=== PATIENT | female | born 1965 | race Caucasian/White ===

== ENCOUNTER 2016-04-28 11:44 | Inpatient (IN) | payer BC ==
[~2016-04-28] VITALS: Ht 157.5 cm; Wt 242.7 kg
[2016-04-28] MEDS ORDERED: ONDANSETRON 4 MG VIAL ONE (12:52)
[2016-04-28] MEDS ORDERED: DUONEB INH ONE (13:01)
[2016-04-28] MEDS ORDERED: METHYLPRED SOD SUCC 125 MG/2 ML VIAL ONE (13:04)
[2016-04-28] MEDS ORDERED: CEFTRIAXONE 1 GM VIAL ONE (13:37)
[2016-04-28] MEDS ORDERED: SODIUM CHLORIDE 0.9% 100 ML IV ONE (13:37)
[2016-04-28] MEDS ORDERED: AZITHROMYCIN 500 MG VIAL IV ONE (13:37)
[2016-04-28 13:43] VITALS: RESP 20
[2016-04-28] MEDS ORDERED: ENOXAPARIN 60 MG/0.6 ML SYR SUBQ ONE (15:04)
[2016-04-28] MEDS ORDERED: ENOXAPARIN 100 MG/ML SYR SUBQ ONE (15:05)
[2016-04-28 16:50] VITALS: RESP 27
[2016-04-28] MEDS: NEB-BROVANA 15 MCG/2 ML INH SCH (18:11)
[2016-04-28] MEDS: NEB-XOPENEX 0.63 MG/3 ML INH SCH (18:11)
[2016-04-28] MEDS: NEB-BUDESONIDE 0.5 MG INH SCH (18:11)
[2016-04-28] MEDS: THEOPHYLLINE SR 300 MG CAP PO SCH (18:22)
[2016-04-28] MEDS: LEVOFLOXACIN 500 MG/100 ML 100 ML IV SCH (18:23)
[2016-04-28] MEDS: Furosemide 20 MG/2 ML VIAL IV SCH (18:31)
[2016-04-28] MEDS: METHYLPRED SOD SUCC 40 MG VIAL IV SCH (18:31)
[2016-04-28 18:39] VITALS: BP_SYST 124; RESP 22; TEMP 99.2; Ht 157.5 cm; Wt 242.7 kg
[2016-04-28] MEDS ORDERED: GLUCAGON 1 MG VIAL IM PRN (19:35)
[2016-04-28] MEDS ORDERED: DEXTROSE 50% SYRINGE 50 ML IV PRN (19:35)
[2016-04-28] MEDS: CYCLOBENZAPRINE 10 MG TAB PO SCH (20:48)
[2016-04-28] MEDS: METFORMIN 500 MG TAB PO SCH (20:48)
[2016-04-28] MEDS: GABAPENTIN 400 MG CAP PO SCH (20:48)
[2016-04-28] MEDS: LISINOPRIL 20 MG TAB PO SCH (20:48)
[2016-04-28] MEDS: ENOXAPARIN 30 MG/0.3 ML SYR SUBQ SCH (21:00)
[2016-04-28] MEDS ORDERED: GABAPENTIN 600 MG TAB PO SCH (21:00)
[2016-04-28 23:00] VITALS: BP_SYST 99; RESP 18
[2016-04-29] VITALS (8 sets, daily range): BP systolic 99–128; RESP 18–32; TEMP 97.5–98.3
[2016-04-29] MEDS: METHYLPRED SOD SUCC 40 MG VIAL IV SCH ×3 (00:26→16:14)
[2016-04-29] MEDS: NEB-BROVANA 15 MCG/2 ML INH SCH ×2 (07:03→20:21)
[2016-04-29] MEDS: NEB-BUDESONIDE 0.5 MG INH SCH ×2 (07:04→20:21)
[2016-04-29] MEDS: NEB-XOPENEX 0.63 MG/3 ML INH SCH ×3 (07:04→20:21)
[2016-04-29] MEDS: Furosemide 20 MG/2 ML VIAL IV SCH ×3 (08:44→21:49)
[2016-04-29] MEDS: LEVOFLOXACIN 500 MG/100 ML 100 ML IV SCH (08:44)
[2016-04-29] MEDS: GABAPENTIN 600 MG TAB PO SCH ×2 (08:45→16:15)
[2016-04-29] MEDS: ENOXAPARIN 30 MG/0.3 ML SYR SUBQ SCH ×2 (08:45→21:53)
[2016-04-29] MEDS: LISINOPRIL 20 MG TAB PO SCH (08:46)
[2016-04-29] MEDS: THEOPHYLLINE SR 300 MG CAP PO SCH (08:46)
[2016-04-29] MEDS: CYCLOBENZAPRINE 10 MG TAB PO SCH ×2 (08:46→21:49)
[2016-04-29] MEDS: METFORMIN 500 MG TAB PO SCH ×2 (08:46→21:50)
[2016-04-29] MEDS: GABAPENTIN 400 MG CAP PO SCH (21:51)
[2016-04-30] VITALS (8 sets, daily range): BP systolic 122–153; RESP 17–31; TEMP 97.4–99.2
[2016-04-30] MEDS: METHYLPRED SOD SUCC 40 MG VIAL IV SCH ×3 (00:29→18:06)
[2016-04-30] MEDS: NEB-BROVANA 15 MCG/2 ML INH SCH ×2 (07:46→18:46)
[2016-04-30] MEDS: NEB-XOPENEX 0.63 MG/3 ML INH SCH ×3 (07:46→18:46)
[2016-04-30] MEDS: NEB-BUDESONIDE 0.5 MG INH SCH ×2 (07:46→18:46)
[2016-04-30] MEDS: GABAPENTIN 600 MG TAB PO SCH ×2 (10:00→18:05)
[2016-04-30] MEDS: CYCLOBENZAPRINE 10 MG TAB PO SCH ×2 (10:00→19:59)
[2016-04-30] MEDS: THEOPHYLLINE SR 300 MG CAP PO SCH (10:00)
[2016-04-30] MEDS: LISINOPRIL 20 MG TAB PO SCH (10:00)
[2016-04-30] MEDS: Furosemide 20 MG/2 ML VIAL IV SCH ×3 (10:00→20:04)
[2016-04-30] MEDS: METFORMIN 500 MG TAB PO SCH ×2 (10:01→20:03)
[2016-04-30] MEDS: ENOXAPARIN 30 MG/0.3 ML SYR SUBQ SCH ×2 (10:02→20:04)
[2016-04-30] MEDS: LEVOFLOXACIN 500 MG/100 ML 100 ML IV SCH (10:29)
[2016-04-30] MEDS: GABAPENTIN 400 MG CAP PO SCH (20:03)
[2016-04-30] MEDS ORDERED: MISSING DOSE XX ONE (23:10)
[2016-05-01] VITALS (7 sets, daily range): BP systolic 110–139; RESP 18–28; TEMP 97.4–97.6
[2016-05-01] MEDS: METHYLPRED SOD SUCC 40 MG VIAL IV SCH ×3 (00:50→16:54)
[2016-05-01] MEDS ORDERED: SALINE FLUSH 10 ML FLUSH PRN (03:25)
[2016-05-01] MEDS: SODIUM CHLORIDE 0.9% FLUSH BAG 500 ML IV SCH (05:35)
[2016-05-01] MEDS: NEB-XOPENEX 0.63 MG/3 ML INH SCH ×3 (07:12→19:01)
[2016-05-01] MEDS: NEB-BROVANA 15 MCG/2 ML INH SCH ×2 (07:12→19:01)
[2016-05-01] MEDS: NEB-BUDESONIDE 0.5 MG INH SCH ×2 (07:12→19:01)
[2016-05-01] MEDS: Furosemide 20 MG/2 ML VIAL IV SCH ×3 (08:53→20:40)
[2016-05-01] MEDS: ENOXAPARIN 30 MG/0.3 ML SYR SUBQ SCH ×2 (08:54→20:42)
[2016-05-01] MEDS: LEVOFLOXACIN 500 MG/100 ML 100 ML IV SCH (08:54)
[2016-05-01] MEDS: LISINOPRIL 20 MG TAB PO SCH (08:55)
[2016-05-01] MEDS: GABAPENTIN 600 MG TAB PO SCH ×2 (08:55→16:53)
[2016-05-01] MEDS: CYCLOBENZAPRINE 10 MG TAB PO SCH ×2 (08:55→20:40)
[2016-05-01] MEDS: THEOPHYLLINE SR 300 MG CAP PO SCH (08:55)
[2016-05-01] MEDS: METFORMIN 500 MG TAB PO SCH ×2 (08:56→20:40)
[2016-05-01] MEDS: SALINE FLUSH 10 ML FLUSH SCH ×2 (13:14→20:39)
[2016-05-01] MEDS: GABAPENTIN 400 MG CAP PO SCH (20:44)
[2016-05-02] MEDS: METHYLPRED SOD SUCC 40 MG VIAL IV SCH ×4 (00:02→23:26)
[2016-05-02 03:40] VITALS: BP_SYST 132; RESP 18; TEMP 98
[2016-05-02] MEDS: SODIUM CHLORIDE 0.9% FLUSH BAG 500 ML IV SCH (05:52)
[2016-05-02] MEDS: NEB-BROVANA 15 MCG/2 ML INH SCH ×2 (06:18→20:31)
[2016-05-02] MEDS: NEB-XOPENEX 0.63 MG/3 ML INH SCH ×3 (06:18→20:31)
[2016-05-02] MEDS: NEB-BUDESONIDE 0.5 MG INH SCH ×2 (06:18→20:31)
[2016-05-02 08:05] VITALS: BP_SYST 123; RESP 18; TEMP 97.3
[2016-05-02] MEDS: Furosemide 20 MG/2 ML VIAL IV SCH ×3 (09:00→20:57)
[2016-05-02] MEDS: SALINE FLUSH 10 ML FLUSH SCH ×2 (09:00→20:57)
[2016-05-02] MEDS: ENOXAPARIN 30 MG/0.3 ML SYR SUBQ SCH ×2 (09:01→21:00)
[2016-05-02] MEDS: LEVOFLOXACIN 500 MG/100 ML 100 ML IV SCH (09:01)
[2016-05-02] MEDS: GABAPENTIN 600 MG TAB PO SCH ×2 (09:02→17:38)
[2016-05-02] MEDS: METFORMIN 500 MG TAB PO SCH ×2 (09:02→20:57)
[2016-05-02] MEDS: THEOPHYLLINE SR 300 MG CAP PO SCH (09:02)
[2016-05-02] MEDS: LISINOPRIL 20 MG TAB PO SCH (09:02)
[2016-05-02] MEDS: CYCLOBENZAPRINE 10 MG TAB PO SCH ×2 (09:02→20:57)
[2016-05-02] MEDS: BETAMETH/CLOTRIM CR 15 GM TOPICAL SCH ×2 (11:25→21:01)
[2016-05-02 11:59] VITALS: BP_SYST 118; RESP 20; TEMP 97.2
[2016-05-02 15:10] VITALS: BP_SYST 150; RESP 16; TEMP 97.6
[2016-05-02 20:43] VITALS: BP_SYST 133; RESP 18; TEMP 98.1
[2016-05-02] MEDS: GABAPENTIN 400 MG CAP PO SCH (20:58)
[2016-05-03] VITALS (7 sets, daily range): BP systolic 127–142; RESP 18–22; TEMP 97.8–98.3
[2016-05-03] MEDS: SODIUM CHLORIDE 0.9% FLUSH BAG 500 ML IV SCH (05:34)
[2016-05-03] MEDS: NEB-BROVANA 15 MCG/2 ML INH SCH ×2 (07:44→19:00)
[2016-05-03] MEDS: NEB-BUDESONIDE 0.5 MG INH SCH ×2 (07:44→19:00)
[2016-05-03] MEDS: NEB-XOPENEX 0.63 MG/3 ML INH SCH ×3 (07:45→18:30)
[2016-05-03] MEDS: SALINE FLUSH 10 ML FLUSH SCH ×2 (08:57→21:33)
[2016-05-03] MEDS: LEVOFLOXACIN 500 MG/100 ML 100 ML IV SCH (08:58)
[2016-05-03] MEDS: METHYLPRED SOD SUCC 40 MG VIAL IV SCH ×2 (08:58→16:50)
[2016-05-03] MEDS: Furosemide 20 MG/2 ML VIAL IV SCH ×3 (08:59→21:34)
[2016-05-03] MEDS: ENOXAPARIN 30 MG/0.3 ML SYR SUBQ SCH ×2 (08:59→21:32)
[2016-05-03] MEDS: GABAPENTIN 600 MG TAB PO SCH ×2 (08:59→16:51)
[2016-05-03] MEDS: THEOPHYLLINE SR 300 MG CAP PO SCH (08:59)
[2016-05-03] MEDS: LISINOPRIL 20 MG TAB PO SCH (09:00)
[2016-05-03] MEDS: CYCLOBENZAPRINE 10 MG TAB PO SCH ×2 (09:00→21:35)
[2016-05-03] MEDS: METFORMIN 500 MG TAB PO SCH ×2 (09:00→21:34)
[2016-05-03] MEDS: BETAMETH/CLOTRIM CR 15 GM TOPICAL SCH ×2 (09:11→21:31)
[2016-05-03] MEDS: GABAPENTIN 400 MG CAP PO SCH (21:31)
[2016-05-04] VITALS (7 sets, daily range): BP systolic 119–143; RESP 16–25; TEMP 97.5–98.1
[2016-05-04] MEDS: METHYLPRED SOD SUCC 40 MG VIAL IV SCH ×4 (00:26→23:50)
[2016-05-04] MEDS: SODIUM CHLORIDE 0.9% FLUSH BAG 500 ML IV SCH (06:11)
[2016-05-04] MEDS: NEB-BROVANA 15 MCG/2 ML INH SCH ×2 (07:00→19:00)
[2016-05-04] MEDS: NEB-BUDESONIDE 0.5 MG INH SCH ×2 (07:00→19:00)
[2016-05-04] MEDS: NEB-XOPENEX 0.63 MG/3 ML INH SCH ×3 (07:52→18:30)
[2016-05-04] MEDS: GABAPENTIN 600 MG TAB PO SCH ×2 (09:23→17:00)
[2016-05-04] MEDS: LISINOPRIL 20 MG TAB PO SCH (09:23)
[2016-05-04] MEDS: THEOPHYLLINE SR 300 MG CAP PO SCH (09:23)
[2016-05-04] MEDS: CYCLOBENZAPRINE 10 MG TAB PO SCH ×2 (09:23→20:59)
[2016-05-04] MEDS: METFORMIN 500 MG TAB PO SCH ×2 (09:23→20:59)
[2016-05-04] MEDS: Furosemide 20 MG/2 ML VIAL IV SCH ×3 (09:24→20:58)
[2016-05-04] MEDS: SALINE FLUSH 10 ML FLUSH SCH ×2 (09:27→20:58)
[2016-05-04] MEDS: ENOXAPARIN 30 MG/0.3 ML SYR SUBQ SCH ×2 (09:27→21:00)
[2016-05-04] MEDS: BETAMETH/CLOTRIM CR 15 GM TOPICAL SCH ×2 (09:27→21:03)
[2016-05-04] MEDS: LEVOFLOXACIN 500 MG/100 ML 100 ML IV SCH (09:29)
[2016-05-04] MEDS: NYSTATIN 500,000 UNITS/5 ML SUSP SWISH.SWAL SCH ×2 (18:16→20:59)
[2016-05-04] MEDS: GABAPENTIN 400 MG CAP PO SCH (20:58)
[2016-05-05] VITALS (7 sets, daily range): BP systolic 117–140; RESP 18–23; TEMP 97.5–98.1
[2016-05-05] MEDS: SODIUM CHLORIDE 0.9% FLUSH BAG 500 ML IV SCH (06:15)
[2016-05-05] MEDS: NEB-BROVANA 15 MCG/2 ML INH SCH ×2 (06:34→19:50)
[2016-05-05] MEDS: NEB-XOPENEX 0.63 MG/3 ML INH SCH ×3 (06:35→19:50)
[2016-05-05] MEDS: NEB-BUDESONIDE 0.5 MG INH SCH ×2 (06:35→19:50)
[2016-05-05] MEDS: METHYLPRED SOD SUCC 40 MG VIAL IV SCH ×2 (08:06→16:01)
[2016-05-05] MEDS: SALINE FLUSH 10 ML FLUSH SCH ×2 (08:06→20:49)
[2016-05-05] MEDS: LEVOFLOXACIN 500 MG/100 ML 100 ML IV SCH (09:20)
[2016-05-05] MEDS: GABAPENTIN 600 MG TAB PO SCH ×2 (09:21→16:04)
[2016-05-05] MEDS: Furosemide 20 MG/2 ML VIAL IV SCH ×3 (09:21→20:49)
[2016-05-05] MEDS: NYSTATIN 500,000 UNITS/5 ML SUSP SWISH.SWAL SCH ×4 (09:21→20:52)
[2016-05-05] MEDS: ENOXAPARIN 30 MG/0.3 ML SYR SUBQ SCH ×2 (09:22→20:52)
[2016-05-05] MEDS: THEOPHYLLINE SR 300 MG CAP PO SCH (09:22)
[2016-05-05] MEDS: CYCLOBENZAPRINE 10 MG TAB PO SCH ×2 (09:22→20:50)
[2016-05-05] MEDS: LISINOPRIL 20 MG TAB PO SCH (09:23)
[2016-05-05] MEDS: METFORMIN 500 MG TAB PO SCH ×2 (09:23→20:50)
[2016-05-05] MEDS: BETAMETH/CLOTRIM CR 15 GM TOPICAL SCH ×2 (09:24→20:52)
[2016-05-05] MEDS: GABAPENTIN 400 MG CAP PO SCH (20:50)
[2016-05-06] VITALS (7 sets, daily range): BP systolic 116–148; RESP 16–20; TEMP 97.3–98
[2016-05-06] MEDS: METHYLPRED SOD SUCC 40 MG VIAL IV SCH ×4 (00:08→23:12)
[2016-05-06] MEDS: SODIUM CHLORIDE 0.9% FLUSH BAG 500 ML IV SCH (06:00)
[2016-05-06] MEDS: NEB-BROVANA 15 MCG/2 ML INH SCH ×2 (08:06→19:04)
[2016-05-06] MEDS: NEB-XOPENEX 0.63 MG/3 ML INH SCH ×3 (08:06→19:04)
[2016-05-06] MEDS: NEB-BUDESONIDE 0.5 MG INH SCH ×2 (08:06→19:04)
[2016-05-06] MEDS: SALINE FLUSH 10 ML FLUSH SCH ×2 (08:56→21:05)
[2016-05-06] MEDS: ENOXAPARIN 30 MG/0.3 ML SYR SUBQ SCH ×2 (08:58→21:08)
[2016-05-06] MEDS: NYSTATIN 500,000 UNITS/5 ML SUSP SWISH.SWAL SCH ×4 (08:58→21:07)
[2016-05-06] MEDS: THEOPHYLLINE SR 300 MG CAP PO SCH (08:59)
[2016-05-06] MEDS: LISINOPRIL 20 MG TAB PO SCH (08:59)
[2016-05-06] MEDS: METFORMIN 500 MG TAB PO SCH ×2 (08:59→21:07)
[2016-05-06] MEDS: Furosemide 20 MG/2 ML VIAL IV SCH ×3 (08:59→21:06)
[2016-05-06] MEDS: GABAPENTIN 600 MG TAB PO SCH ×2 (08:59→15:40)
[2016-05-06] MEDS: CYCLOBENZAPRINE 10 MG TAB PO SCH ×2 (09:00→21:06)
[2016-05-06] MEDS: BETAMETH/CLOTRIM CR 15 GM TOPICAL SCH ×2 (09:01→21:09)
[2016-05-06] MEDS: GABAPENTIN 400 MG CAP PO SCH (21:07)
[2016-05-07 02:28] VITALS: RESP 24
[2016-05-07 03:25] VITALS: BP_SYST 121; RESP 18; TEMP 98.3
[2016-05-07] MEDS: SODIUM CHLORIDE 0.9% FLUSH BAG 500 ML IV SCH (04:33)
[2016-05-07 06:46] VITALS: RESP 22
[2016-05-07] MEDS: NEB-XOPENEX 0.63 MG/3 ML INH SCH ×2 (06:46→11:34)
[2016-05-07] MEDS: NEB-BUDESONIDE 0.5 MG INH SCH (06:46)
[2016-05-07] MEDS: NEB-BROVANA 15 MCG/2 ML INH SCH (06:46)
[2016-05-07 07:34] VITALS: BP_SYST 120; RESP 20; TEMP 97.4
[2016-05-07] MEDS: SALINE FLUSH 10 ML FLUSH SCH (09:21)
[2016-05-07] MEDS: METHYLPRED SOD SUCC 40 MG VIAL IV SCH (09:21)
[2016-05-07] MEDS: Furosemide 20 MG/2 ML VIAL IV SCH (09:24)
[2016-05-07] MEDS: THEOPHYLLINE SR 300 MG CAP PO SCH (09:24)
[2016-05-07] MEDS: METFORMIN 500 MG TAB PO SCH (09:24)
[2016-05-07] MEDS: BETAMETH/CLOTRIM CR 15 GM TOPICAL SCH (09:25)
[2016-05-07] MEDS: NYSTATIN 500,000 UNITS/5 ML SUSP SWISH.SWAL SCH ×2 (09:25→12:59)
[2016-05-07] MEDS: GABAPENTIN 600 MG TAB PO SCH (09:25)
[2016-05-07] MEDS: LISINOPRIL 20 MG TAB PO SCH (09:25)
[2016-05-07] MEDS: CYCLOBENZAPRINE 10 MG TAB PO SCH (09:25)
[2016-05-07] MEDS: ENOXAPARIN 30 MG/0.3 ML SYR SUBQ SCH (09:26)
[2016-05-07 11:19] VITALS: BP_SYST 138; RESP 20; TEMP 97.6
[2016-05-07 13:53] VITALS: BP_SYST 138; RESP 20; TEMP 97.6
== END 2016-05-07 15:17 | disposition home or self-care (01) | DRG 189 ==
LOC: ENRESERVDT → CANRESERV → ENRESERVTM → ER 11:44 → EMR 15:35 → ENPENDDIS 15:35 → PCU2 16:33 → 4NT 04-30 22:56
PROVIDERS: ADMIT Internal Medicine; ATTEND Internal Medicine
DX: J96.01 Acute respiratory failure with hypoxia (principal); E87.2 Acidosis; J44.1 Chronic obstructive pulmonary disease with (acute) exacerbation; E66.2 Morbid (severe) obesity with alveolar hypoventilation; E87.1 Hypo-osmolality and hyponatremia; Z68.43 Body mass index [BMI] 50.0-59.9, adult; I89.0 Lymphedema, not elsewhere classified; E11.65 Type 2 diabetes mellitus with hyperglycemia; L30.4 Erythema intertrigo; M17.0 Bilateral primary osteoarthritis of knee; K21.9 Gastro-esophageal reflux disease without esophagitis; Z87.891 Personal history of nicotine dependence; Z79.84 Long term (current) use of oral hypoglycemic drugs; Z79.51 Long term (current) use of inhaled steroids; Z79.52 Long term (current) use of systemic steroids
CPT/HCPCS: 36415; 36600; 71010; 80048; 80053; 80198; 82553; 82607; 82728; 82746; 82803; 82947; 83036; 83540; 83605; 83880; 84439; 84443; 84466; 84484; 85025; 87040; 87804; 93005; 93306; 94640; 94660; 94762; 96365; 96367; 96372; 96375